=== PATIENT | male | born 2000 | race Caucasian/White ===

== ENCOUNTER 2018-03-26 02:16 | Emergency (ER) | payer BC ==
[~2018-03-26] VITALS: Ht 182.9 cm; Wt 72.7 kg
[2018-03-26 02:23] VITALS: BP 134/77; TEMP 99.2
[2018-03-26] MEDS ORDERED: ZYRTEC 10MG10 MG PO (02:38)
[2018-03-26 03:15] VITALS: PULSE 98
== END 2018-03-26 03:15 | disposition home or self-care (01) ==
LOC: COL.ER 02:16
DX: S61.012A Laceration without foreign body of left thumb without damage to nail, initial encounter (principal); S51.812A Laceration without foreign body of left forearm, initial encounter; W26.8XXA Contact with other sharp object(s), not elsewhere classified, initial encounter; Y92.009 Unspecified place in unspecified non-institutional (private) residence as the place of occurrence of the external cause

== ENCOUNTER 2018-05-06 01:05 | Emergency (ER) | payer BC ==
[~2018-05-06] VITALS: Ht 180.3 cm; Wt 70.5 kg
[~2018-05-06 01:05] MED LIST: ZYRTEC 10MG10 MG PO
[2018-05-06 01:13] VITALS: BP 133/58; TEMP 97.5
[2018-05-06 02:03] VITALS: PULSE 94
== END 2018-05-06 02:05 | disposition home or self-care (01) ==
LOC: COL.ER 01:05
DX: S93.402A Sprain of unspecified ligament of left ankle, initial encounter (principal); X50.0XXA Overexertion from strenuous movement or load, initial encounter; Y92.310 Basketball court as the place of occurrence of the external cause; Y93.67 Activity, basketball